=== PATIENT | female | born 1990 | race Caucasian/White ===

== ENCOUNTER 2017-08-21 08:20 | Day surgery (SDC) | payer OTHER ==
--- NOTE | 2017-08-18 10:13 | HP ---
DATE OF SURGERY: 08/21/2017 ADMISSION DIAGNOSIS: Symptomatic cholelithiasis. ANTICIPATED PROCEDURE: Laparoscopic cholecystectomy. HISTORY OF PRESENT ILLNESS: PAST MEDICAL HISTORY: ALLERGIES: NONE. MEDICATIONS: None. PAST SURGICAL HISTORY: Sinus surgery, wisdom teeth. SOCIAL HISTORY: Half pack per day. ETOH negative. FAMILY HISTORY: Negative. PHYSICAL EXAMINATION: VITAL SIGNS: Normal. CHEST: Clear. COR: Regular. ABDOMEN: No palpable organomegaly or mass. IMPRESSION: Symptomatic cholelithiasis. PLAN: Laparoscopic cholecystectomy.
[~2017-08-21 08:20] MED LIST: Lactated Ringers 1,000 ML IV ONE; Sensorcaine 0.25% 10 ML ONE
[2017-08-21] MEDS ORDERED: Quelicin Fliptop 200 MG/10 ML IV ONE (08:21)
[2017-08-21] MEDS ORDERED: Zofran 4 MG/2 ML VIAL IV ONE (08:21)
[2017-08-21] MEDS ORDERED: Zemuron 100 MG/10 ML IV ONE (08:21)
[2017-08-21] MEDS ORDERED: BRIDION 200MG/2ML IV ONE (08:21)
[2017-08-21] MEDS ORDERED: SUBLIMAZE 100 MCG/2 ML IV ONE (08:21)
[2017-08-21] MEDS ORDERED: TORAdol 30 mg Injection IV ONE (08:21)
[2017-08-21] MEDS ORDERED: DIPRIVAN 200 MG/20 ML IV ONE (08:21)
[2017-08-21] MEDS ORDERED: Decadron 4 MG INJ IV ONE (08:21)
[2017-08-21] MEDS ORDERED: Lactated Ringers 1,000 ML IV ONE ×2 (08:41→13:07)
[2017-08-21] MEDS ORDERED: MEFOXIN 2 GM PREMIX** 2 GM/50 ML ML IV ONE (08:41)
[2017-08-21] MEDS ORDERED: Lactated Ringers 1,000 ML IV SCH (09:00)
[2017-08-21] MEDS ORDERED: MEFOXIN 2 GM PREMIX** 2 GM/50 ML ML IV SCH (09:00)
[2017-08-21 09:17] LABS: Mean Cell Volume 85.1 fl (78-100); Mean Corpuscular Hemoglobin 28.2 pg (26-32); Mean Platelet Volume 11.4 fl (6-9.5); Platelet Count 209 K/mm3 (150-450); Red Blood Count 5.03 M/mm3 (4.1-5.4); Red Cell Distribution Width 13.9 % (11.5-14.0); White Blood Count 6.8 K/mm3 (4.0-10.5)
[2017-08-21 09:34] LABS: ANION GAP 13.2 MEQ/L (5-15); BLOOD UREA NITROGEN 11 mg/dL (9-20); CHLORIDE 105 mEq/L (98-107); Carbon Dioxide 25.5 mEq/L (21-32); Glucose 87 MG/DL (70-110); SODIUM 139 mEq/L (136-145)
[2017-08-21 09:36] LABS: Potassium 4.3 mEq/L (3.5-5.1)
[2017-08-21] MEDS ORDERED: DILAUDID 2 MG INJECTION ONE (13:07)
[2017-08-21] MEDS ORDERED: SUBLIMAZE 100 MCG/2 ML ONE (13:14)
[2017-08-21] MEDS ORDERED: BENADRYL 50 MG/ML ONE (13:31)
--- NOTE | 2017-08-21 13:50 | OP ---
SURGERY DATE/TIME: 08/21/2017 1205 PREOPERATIVE DIAGNOSIS: Symptomatic cholelithiasis. POSTOPERATIVE DIAGNOSIS: Symptomatic cholelithiasis. PROCEDURE: Laparoscopic cholecystectomy. SURGEON: Dr. Leyva. ANESTHESIA: General endotracheal tube. COMPLICATIONS: None. CONDITION: Stable. INDICATIONS: A patient with upper abdominal pain, ultrasound positive, seen and examined. The procedure discussed in detail and wished to proceed. DESCRIPTION OF PROCEDURE AND FINDINGS: Taken to surgery. General anesthetic, routine prep and drape. Veress needle inserted. Opening pressure of 1, insufflating pressure 14. Four - 5's. Good visualization. The one 5 was changed to a 12 and it was decided to take the infundibulum with the stapling device. It was taken 1 mm off the common bile duct. It transected nicely. It was sealed off well. The gallbladder was brought out through this port with minimal dilatation. It was closed with hole closure device figure-[id number] 0 Vicryl. Field totally clean and dry. CO2 exsufflated. Skin closed with 4-0 Vicryl and Steri-Strips. The patient tolerated the procedure satisfactorily. There was no family doctor.
[2017-08-21 15:35] VITALS: BP 139/79; PULSE 75; O2SAT 98
== END 2017-08-21 15:20 | disposition home or self-care (01) ==
LOC: SDC 08:20
PROVIDERS: ATTEND Surgery
PROC: 0FT44ZZ Resection of Gallbladder, Percutaneous Endoscopic Approach (ICD-10-PCS; principal; 2017-08-21)
DX: K80.20 Calculus of gallbladder without cholecystitis without obstruction (principal)
CPT/HCPCS: 00790; 36415; 80048; 84703; 85027; 88304; 93005; J0330; J0694; J1100; J1170; J1200; J1885; J2405; J2704; J3010